=== PATIENT | female | born 1930 | race Caucasian/White ===

== ENCOUNTER → 2017-01-09 | Outpatient (CLI) | payer BC ==
[~2017-01-09] MED LIST: ALLO100T PO; AMLO-110 PO; ASPCH81 PO; ATEN-173 PO; DYZ PO; SULF800T23 PO
[2017-01-09 12:30] LABS: BASO % 0.1 %; BASO ABS # 0.01 K/uL (0-0.2); COMPLETE YES; EOS % 0.9 %; HEMATOCRIT 42.5 % (37-47); IG% 0.3 %; LYMPH % 38.1 %; LYMPH ABS # 2.81 K/uL (1.2-3.4); MEAN CELL VOLUME 91.6 fL (80-100); MEAN CORPUSCULAR HGB CONC 33.9 g/dl (32-36); MEAN PLATELET VOLUME 10.6 fL (7.4-10.4); NEUT % 52.6 %; PLATELET COUNT 189 K/uL (130-400); RED BLOOD COUNT 4.64 M/uL (4.2-5.4); WHITE BLOOD COUNT 7.37 K/uL (4.8-10.8)
[2017-01-09 13:02] LABS: ALT/SGPT 21 U/L (12-78); BLOOD UREA NITROGEN 23 mg/dl (7-18); BUN/CREATININE RATIO 25.5 (10-20); CALCIUM 9.5 mg/dl (8.5-10.1); CARBON DIOXIDE 26 mmol/L (21-32); CHLORIDE 106 mmol/L (98-107); CREATININE 0.91 mg/dl (0.60-1.20); GLUCOSE 105 mg/dl (70-99); POTASSIUM 4.4 mmol/L (3.5-5.1); SODIUM 142 mmol/L (136-145)
[2017-01-09 13:12] LABS: ALKALINE PHOSPHATASE 95 U/L (45-117); AST/SGOT 17 U/L (15-37)
== END | disposition home or self-care (01) ==
LOC: C.LABPBG 10:34
PROVIDERS: ATTEND Internal Medicine
DX: M48.06 Spinal stenosis, lumbar region (principal)

== ENCOUNTER → 2017-01-26 | Outpatient (CLI) | payer BC ==
--- NOTE | 2017-01-26 13:01 | DIAGNOSTIC IMAGING REPORT ---
RIBS BILATERAL MIN 3 VIEWS CLINICAL HISTORY: RIB PAIN ON RIGHT SIDE pain COMPARISON STUDY: 06/15/2009 FINDINGS: Nondisplaced cortical fracture anterior right eighth and ninth ribs. All remaining ribs are unremarkable. Left ribs are unremarkable. No evidence for pneumothorax. IMPRESSION: Nondisplaced cortical fractures anterior right eighth and ninth ribs. Electronically signed by: Mil Avelar M.D. 01/26/2017 12:59 PM Dictated Date/Time: 01/26/2017 12:55 PM
== END | disposition home or self-care (01) ==
LOC: C.RADBC 12:00
PROVIDERS: ATTEND Physician Assistant
DX: R07.81 Pleurodynia (principal); M84.48XA Pathological fracture, other site, initial encounter for fracture

== ENCOUNTER → 2017-08-14 | Outpatient (CLI) | payer BC ==
--- NOTE | 2017-08-14 11:25 | DIAGNOSTIC IMAGING REPORT ---
L ELBOW MIN 3 VIEWS ROUTINE, L SHOULDER MIN 2 VIEWS ROUTINE HISTORY: 87 years-old Female PAIN AND SWELLING OF UPPER EXTREMITY acute pain and swelling of the left upper extremity with recent fall COMPARISON: Chest radiograph 10/02/2009 TECHNIQUE: 3 views of the left elbow and 4 views of the left shoulder FINDINGS: SHOULDER: The bones are moderately demineralized. 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 No acute fracture, dislocation or intra-articular loose body. Humeral head is high right within the glenoid fossa with spurring and subcortical lucency of the greater tuberosity suggesting subacromial impingement. ELBOW: Round densities about the forearm suggest vascular calcifications. There is moderate soft tissue swelling about the dorsal elbow. Degenerative changes are present about the elbow without acute fracture or dislocation. Spurring about the medial and lateral epicondyles. No large joint effusion. IMPRESSION: 1. No acute fracture or dislocation of the left shoulder or elbow. 2. Moderate soft tissue swelling about the dorsal elbow. 3. Round densities about the dorsal forearm suggest vascular calcifications or radiopaque foreign bodies. 4. Degenerative changes about the left shoulder and elbow as above. The above report was generated using voice recognition software. It may contain grammatical, syntax or spelling errors. Electronically signed by: Mathew Muñiz M.D. 08/14/2017 11:23 AM Dictated Date/Time: 08/14/2017 11:20 AM
== END | disposition home or self-care (01) ==
LOC: C.RADBC 10:38
PROVIDERS: ATTEND Physician Assistant
DX: M79.603 Pain in arm, unspecified (principal); M79.89 Other specified soft tissue disorders